=== PATIENT | male | born 1965 | race Caucasian/White ===

== ENCOUNTER 2020-05-25 09:05 | Outpatient (REF) | payer OTHER, SELFPAY | END 2020-05-25 09:06 | disposition home or self-care (01) | LOC: HO.LAB 09:05 | PROVIDERS: Visit Provider Internal Medicine | DX: Z20.822 Contact with and (suspected) exposure to COVID-19 (principal) | CPT/HCPCS: 36415; C9803; U0003; U0005 ==

== ENCOUNTER 2022-01-30 11:06 | Emergency (ER) | payer OTHER, SELFPAY | END 2022-01-30 11:59 | disposition left against medical advice (07) | PROVIDERS: Emergency Provider Emergency Medicine | DX: Z02.79 Encounter for issue of other medical certificate (principal) ==